=== PATIENT | female | born 1965 | race Caucasian/White ===

== ENCOUNTER → 2016-12-27 | Outpatient (CLI) | payer MEDICAID | LOC: FIMAGING 15:19 | DX: Z12.31 Encounter for screening mammogram for malignant neoplasm of breast (principal) | CPT/HCPCS: G0202 ==

== ENCOUNTER 2017-02-10 11:08 | Day surgery (SDC) | payer MEDICAID ==
[2017-02-10] MEDS ORDERED: LIDOCAINE 1% 2 ML INJ ONE (11:25)
[2017-02-10] MEDS ORDERED: LIDOCAINE 1% 2 ML INJ ID PRN (11:25)
[2017-02-10] MEDS ORDERED: NS 500 ML IV SCH (11:30)
--- NOTE | 2017-02-10 12:33 | PDGENHP ---
History & Physical Chief Complaint: routine screening History of Present Illness: fhx in distal relative Pertinent Past, Social, Family History: fhx polyps in father > age 60. PGF had CC in his 80's Relevant Physical Exam: CTA. S1S2, RRR. +BS, soft, NT A+Ox3 Cardiorespiratory Assessment: CTA. S1S2,RRR. +bs, soft, nt
--- NOTE | 2017-02-10 12:34 | PDPROPOC ---
Sedation Plan of Care ASA Classification: ASA 2 Planned drugs: versed fentanyl Mallampati Score: Class 1 332 Rule: 332
[2017-02-10] MEDS ORDERED: fentaNYL 100 MCG/2 ML INJ ONE (12:40)
[2017-02-10] MEDS ORDERED: MIDAZOLAM 2 MG/2 ML VIAL ONE ×2 (12:40→13:04)
[2017-02-10 13:34] VITALS: RESP 16; TEMP 97.9
[2017-02-10 13:47] VITALS: BP 97/81; PULSE 77; O2SAT 96
--- NOTE | 2017-02-10 14:05 | GPN ---
[f rep st] PROCEDURE NOTE PROCEDURE: A colonoscopy, a biopsy and snare procedure report. INDICATIONS: Screening with a family history of colon polyps in 2 first-degree relatives. PREOPERATIVE DIAGNOSIS: Rule out polyps. POSTOPERATIVE DIAGNOSES: 1. Small ascending colon polyp removed in total by cold biopsy. 2. Moderate-sized transverse colon polyp removed in total by cold snare. 3. Otherwise normal exam. INFORMED CONSENT: I did discuss with the patient regarding the procedure, alternatives, benefits, a nd risks including bleeding, perforation, infection, risk of medication. Informed consent was anuj d and witnessed. COMPLICATIONS: None immediate. MEDICATIONS: Versed 9 mg IV. Fentanyl 125 mcg IV. DESCRIPTION OF PROCEDURE: Patient was placed in the left lateral decubitus position, and IV sedatio n was performed. After adequate sedation, a visual and digital anorectal examination was performed. The video colonoscope was inserted via the rectum and advanced under visualization to the terminal ilium. Upon withdrawal of the instrument, careful attention was paid to mucosal detail. The prep was very good. The terminal ileum was normal. I performed retroflex examination of the cecum. The endoscope was un-retroflexed and withdrawn slowly. There was a 2-3 mm sessile polyp in the ascendi ng colon that was removed in total by cold biopsy in piecemeal fashion. In the transverse colon was a 6 mm semi-sessile polyp removed in total by cold snare. Retroflexed exam was also performed in t he rectum. After the endoscope was un-retroflexed, I advanced back into the transverse colon, to re move air. The endoscope was then completely withdrawn, confirming the above findings. The patient tolerated the procedure well and was transferred to recovery in satisfactory condition. IMPRESSION: 1. Small ascending colon polyp measuring 2-3 mm removed in total by cold biopsy in piecemeal fashio n. 2. 6 mm semi-sessile transverse colon polyp removed in total by cold snare. 3. Otherwise normal exam. RECOMMENDATIONS: 1. Follow up pathology of polyps. 2. Repeat colonoscopy in 5 years as long as there is no advanced pathology, i.e., villous tissue on the resected polyps. 3. High-fiber, high-fluid diet. 4. Can restart all medications. 5. Follow up with primary care physician as scheduled. Thank you for allowing me to participate patient's healthcare. Do not hesitate to call me with any questions. /[id number]/MODL
--- NOTE | 2017-02-10 16:21 | POSTOPPROG ---
Post Op Note Date of Operation: 02/10/17 Surgeon: Osmin Mcpherson Anesthesia: IV Sedation (versee 9mg fentanyl 125 mcg) Pre-op Diagnosis: colon screen Post-op Diagnosis: ac 2mm polyp, tc 6 mm polyp Indication: screen Procedure: colon and bx and snare Findings: 2mm ac polyp, 6 mm tc polyp Inf/Abcess present in the surg proc area at time of surgery?: No EBL: Minimal (few ml) Complications: none immediate
== END 2017-02-10 14:00 | disposition home or self-care (01) ==
LOC: FSGY 11:08
PROVIDERS: ATTEND Internal Medicine Gastroenterology
PROC: 0DBL8ZX Excision of Transverse Colon, Via Natural or Artificial Opening Endoscopic, Diagnostic (ICD-10-PCS; principal; 2017-02-10 12:15)
PROC: 0DBK8ZX Excision of Ascending Colon, Via Natural or Artificial Opening Endoscopic, Diagnostic (ICD-10-PCS; principal; 2017-02-10 12:15)
DX: Z12.11 Encounter for screening for malignant neoplasm of colon (principal); D12.3 Benign neoplasm of transverse colon; Z86.010 Personal history of colon polyps; Z83.71 Family history of colonic polyps
CPT/HCPCS: J2250; J3010

== ENCOUNTER → 2017-11-21 | Outpatient (CLI) | payer MEDICAID | LOC: FIMAGING 15:45 | PROVIDERS: ATTEND Obstetrics & Gynecology Gynecology | DX: N95.0 Postmenopausal bleeding (principal); Z79.890 Hormone replacement therapy | CPT/HCPCS: 83735-90; 84270-90; 84481-90; 84482-90; 86376-90; 86800-90 ==